=== PATIENT | female | born 1960 | race Caucasian/White ===

== ENCOUNTER 2018-05-18 13:39 | Day surgery (SDC) | payer OTHER ==
[2018-05-18] MEDS ORDERED: LIDOCAINE HCL 1%, 10 MG/ML (20ML VIAL) ONE (14:01)
--- NOTE | 2018-05-18 15:27 | HP ---
[facility] - Chief Complaint Chief Complaint: Here for elective bone marrow biopsy. Patient developed right sided lower mlar tooth pain since 05/16 and has beeon motrin 1gran Q 4hrs. --last doese being ths morning. No fevers/SOB/cough/abdominal pain/nausea/vomiting/ diarrhea/hrtjql2x symptoms History Source: Patient Limitations to Obtaining History: Language Barrier [facility] Physical Exam - Physical Examination General Appearance: Well Nourished Lung: Clear to auscultation Heart: Regular rate & rhythm, Normal S1, Normal S2 Abdomen: Soft, No tenderness Extremities: No edema Neurological: Intact [facility] Impression/Plan - Impression/Plan Impression: 58 y/o patient with leukopenia. Since patient has been on motrin 1 gram Q 4hrs. for last 2 days --will have her follow up with dentist. will have her f/u in the office to reschedule bmbx
== END 2018-05-18 15:36 | disposition home or self-care (01) ==
LOC: JASUSAT 13:39 → J7W 13:43 → JASUSAT 15:36
PROVIDERS: ATTEND Internal Medicine Hematology & Oncology
DX: Z53.8 Procedure and treatment not carried out for other reasons (principal)